=== PATIENT | male | born 1990 | race Caucasian/White ===

== ENCOUNTER → 2016-07-25 | Outpatient (REF) ==
[~2016-07-25] MED LIST: CLARITIN 1010 MG/TAB PO; CLARITIN-D 10 M1 T24 PO; CRUTCHES MC; MOTRIN 800800 MG/TAB PO; NO HOME MEDICATIONS; NORCO 325 MG-51 TAB PO; ZITHROMAX 250M250 MG PO; ZOFRAN 4MG T4 MG/TAB PO
== END ==
LOC: WSOH 14:08
DX: Z02.1 Encounter for pre-employment examination (principal)

== ENCOUNTER → 2016-07-26 | Outpatient (REF) | LOC: WSOH 13:54 | DX: Z02.1 Encounter for pre-employment examination (principal) ==

== ENCOUNTER → 2016-07-29 | Outpatient (REF) | LOC: WSOH 12:59 | DX: Z23 Encounter for immunization (principal) ==

== ENCOUNTER → 2016-08-28 | Outpatient (REF) | LOC: WSOH 15:36 | DX: Z23 Encounter for immunization (principal) ==

== ENCOUNTER 2016-09-06 11:16 | Outpatient (RCR) | payer OTHER ==
[~2016-09-06] VITALS: Ht 177.8 cm; Wt 53.0 kg
[~2016-09-06 11:16] MED LIST changes: -CLARITIN 1010 MG/TAB PO; -CLARITIN-D 10 M1 T24 PO; -CRUTCHES MC; -MOTRIN 800800 MG/TAB PO; -NORCO 325 MG-51 TAB PO; -ZITHROMAX 250M250 MG PO; -ZOFRAN 4MG T4 MG/TAB PO
[2016-09-06 12:45] VITALS: BP 101/58; PULSE 89; TEMP 99.7
[2016-09-06] MEDS ORDERED: ZOFRAN 4MG T4 MG/TAB PO (19:05)
[2016-09-06] MEDS ORDERED: ZITHROMAX 250M250 MG PO (19:05)
== END 2016-09-06 17:01 | disposition home or self-care (01) ==
LOC: EUO 11:16
DX: E86.0 Dehydration (principal); R11.2 Nausea with vomiting, unspecified; R50.9 Fever, unspecified; R42 Dizziness and giddiness

== ENCOUNTER 2016-09-06 16:54 | Emergency (ER) | payer OTHER ==
[~2016-09-06] VITALS: Ht 175.3 cm; Wt 53.2 kg
[2016-09-06 16:56] VITALS: TEMP 99.4
[2016-09-06 17:40] LABS: BASO # 0.1 (0.0-0.2); BASO % 0.6 % (0.0-2.0); EOS # 0.2 (0.0-0.7); EOS % 2.2 % (0-4.0); GRAN # 5.7 (1.4-6.5); GRAN % 63.1 % (42.2-75.2); HEMATOCRIT 43.9 % (42.0-52.0); HEMOGLOBIN 14.7 g/dl (13.5-18.0); LYMPH # 1.9 (1.2-3.4); LYMPH % 20.4 % (20.0-51.0); MEAN CELL VOLUME 91 fl (80.0-100.0); MEAN CORPUSCULAR HEMOGLOBIN 30 pg (27.0-31.0); MEAN CORPUSCULAR HGB CONC 34 g/dl (33.0-37.0); MEAN PLATELET VOLUME 9.9 fl (7.4-10.4); MONO # 1.2 (0.1-0.6); MONO % 13.5 % (1.7-9.3); PLATELET COUNT 206 K/mm3 (130-400); RED BLOOD COUNT 4.85 M/mm3 (4.20-5.60); REDCELL DISTRIBUTION WIDTH-CV 12.8 % (11.5-14.5); WHITE BLOOD COUNT 9.1 K/mm3 (4.8-10.8)
[2016-09-06 17:50] LABS: ADJUSTED CALCIUM 8.9 mg/dL (8.4-10.2); ALBUMIN 4.3 gm/dL (3.5-5.0); BILIRUBIN,TOTAL 1.1 mg/dL (0.0-1.0); CALCIUM 9.1 mg/dL (8.4-10.2); CREATININE, serum 1.01 mg/dL (0.66-1.25); POTASSIUM 4.3 mmol/L (3.4-5.0); TOTAL PROTEIN 7.9 gm/dL (6.4-8.2)
[2016-09-06 18:02] LABS: INFLUENZA B NEGATIVE
[2016-09-06] MEDS ORDERED: ZOFRAN 4MG T4 MG/TAB PO (19:05)
[2016-09-06] MEDS ORDERED: ZITHROMAX 250M250 MG PO (19:05)
[2016-09-06 19:25] VITALS: BP 111/62; PULSE 74
== END 2016-09-06 19:24 | disposition home or self-care (01) ==
LOC: COL.ER 16:54
PROVIDERS: Emergency Medicine
DX: J18.9 Pneumonia, unspecified organism (principal)
CPT/HCPCS: J1885; J2405; J7030

== ENCOUNTER 2016-10-12 15:49 | Emergency (ER) | payer OTHER ==
[~2016-10-12] VITALS: Ht 175.3 cm; Wt 54.1 kg
[~2016-10-12 15:49] MED LIST changes: +ZITHROMAX 250M250 MG PO; +ZOFRAN 4MG T4 MG/TAB PO
[2016-10-12 15:50] VITALS: BP 114/47; TEMP 98.6
[2016-10-12] MEDS ORDERED: CLARITIN 1010 MG/TAB PO (15:56)
[2016-10-12 17:02] VITALS: PULSE 89
== END 2016-10-12 17:10 | disposition home or self-care (01) ==
LOC: COL.ER 15:49
DX: S63.8X2A Sprain of other part of left wrist and hand, initial encounter (principal); W22.8XXA Striking against or struck by other objects, initial encounter; Y92.89 Other specified places as the place of occurrence of the external cause

== ENCOUNTER 2017-01-20 15:18 | Emergency (ER) | payer OTHER ==
[~2017-01-20] VITALS: Ht 175.3 cm; Wt 51.8 kg
[2017-01-20 15:18] VITALS: TEMP 99.3
[~2017-01-20 15:18] MED LIST changes: +CLARITIN 1010 MG/TAB PO
[2017-01-20] MEDS ORDERED: CLARITIN-D 10 M1 T24 PO (15:24)
[2017-01-20] MEDS ORDERED: NORCO 325 MG-51 TAB PO (16:36)
[2017-01-20] MEDS ORDERED: MOTRIN 800800 MG/TAB PO (16:36)
[2017-01-20] MEDS ORDERED: CRUTCHES MC (17:12)
[2017-01-20 17:23] VITALS: BP 102/72; PULSE 73
== END 2017-01-20 17:08 | disposition home or self-care (01) ==
LOC: COL.ER 15:18
DX: S80.12XA Contusion of left lower leg, initial encounter (principal); V13.4XXA Pedal cycle driver injured in collision with car, pick-up truck or van in traffic accident, initial encounter; Y92.414 Local residential or business street as the place of occurrence of the external cause
CPT/HCPCS: J2270; J2405

== ENCOUNTER → 2017-01-27 | Outpatient (REF) ==
[~2017-01-27] MED LIST changes: +CLARITIN-D 10 M1 T24 PO; +CRUTCHES MC; +MOTRIN 800800 MG/TAB PO; +NORCO 325 MG-51 TAB PO
== END ==
LOC: WSOH 14:06
DX: Z23 Encounter for immunization (principal)

== ENCOUNTER 2021-03-01 08:48 | Emergency (ER) | payer SELFPAY ==
[~2021-03-01] VITALS: Ht 175.3 cm; Wt 53.2 kg
[2021-03-01 09:04] VITALS: TEMP 98.6
[2021-03-01 09:30] LABS: BASO % 0.8 % (0.0-2.0); EOS # 0.1 (0.0-0.7); GRAN # 2.7 (1.4-6.5); GRAN % 66.7 % (42.2-75.2); HEMATOCRIT 42.9 % (42.0-52.0); HEMOGLOBIN 14.9 g/dl (13.5-18.0); LYMPH # 0.4 (1.2-3.4); LYMPH % 11.1 % (20.0-51.0); MEAN CELL VOLUME 87 fl (80.0-100.0); MEAN CORPUSCULAR HEMOGLOBIN 30 pg (27.0-31.0); MEAN CORPUSCULAR HGB CONC 35 g/dl (33.0-37.0); MEAN PLATELET VOLUME 9.5 fl (7.4-10.4); MONO # 0.8 (0.1-0.6); MONO % 19.1 % (1.7-9.3); PLATELET COUNT 206 K/mm3 (130-400); RED BLOOD COUNT 4.94 M/mm3 (4.20-5.60); REDCELL DISTRIBUTION WIDTH-CV 12.9 % (11.5-14.5)
[2021-03-01 09:43] LABS: ALBUMIN 4.3 gm/dL (3.5-5.0); BILIRUBIN,TOTAL 0.8 mg/dL (0.0-1.0); CALCIUM 8.9 mg/dL (8.4-10.2); CREATININE, serum 1.05 (0.66-1.25); POTASSIUM 3.4 mmol/L (3.4-5.0); TOTAL PROTEIN 7.2 gm/dL (6.4-8.2)
[2021-03-01 10:51] VITALS: BP 100/65; PULSE 94
== END 2021-03-01 10:59 | disposition home or self-care (01) ==
LOC: COL.ER 08:48
PROVIDERS: Physician Assistant
DX: U07.1 COVID-19 (principal)
CPT/HCPCS: J1885; J7030

== ENCOUNTER 2021-09-13 14:24 | Emergency (ER) | payer SELFPAY ==
[~2021-09-13] VITALS: Ht 175.3 cm; Wt 52.3 kg
[2021-09-13 14:30] VITALS: BP 111/69; TEMP 97.8
[2021-09-13 15:43] VITALS: PULSE 81
== END 2021-09-13 15:43 | disposition home or self-care (01) ==
LOC: COL.ER 14:24
DX: M79.642 Pain in left hand (principal); Z88.6 Allergy status to analgesic agent

== ENCOUNTER 2021-12-13 23:00 | Emergency (ER) | payer SELFPAY ==
[~2021-12-13] VITALS: Ht 175.3 cm; Wt 52.7 kg
[2021-12-13 23:11] VITALS: TEMP 98.8
[2021-12-13] MEDS ORDERED: NORCO 325 MG-51 TAB PO (23:53)
[2021-12-14 00:21] VITALS: BP 105/73; PULSE 74
== END 2021-12-14 00:21 | disposition home or self-care (01) ==
LOC: COL.ER 23:00
DX: T23.232A Burn of second degree of multiple left fingers (nail), not including thumb, initial encounter (principal); Z87.891 Personal history of nicotine dependence; Z28.310 Unvaccinated for COVID-19; X19.XXXA Contact with other heat and hot substances, initial encounter; Y92.59 Other trade areas as the place of occurrence of the external cause; Y99.0 Civilian activity done for income or pay

== ENCOUNTER 2021-12-25 09:13 | Inpatient (IN) | payer SELFPAY ==
[~2021-12-25] VITALS: Ht 177.8 cm; Wt 51.8 kg
[2021-12-25 09:56] LABS: BASO % 0.8 % (0.0-2.0); EOS % 0.5 % (0.0-4.0); GRAN # 2.7 K/mm3 (1.4-6.5); GRAN % 69.5 % (42.2-75.2); LYMPH # 0.4 K/mm3 (1.2-3.4); MEAN CELL VOLUME 88 fl (80.0-100.0); MEAN CORPUSCULAR HEMOGLOBIN 31 pg (27-31); MEAN CORPUSCULAR HGB CONC 35 g/dl (33.0-37.0); MONO # 0.7 K/mm3 (0.1-0.6); MONO % 18.9 % (1.7-9.3); PLATELET COUNT 201 K/mm3 (130-400); RED BLOOD COUNT 4.56 M/mm3 (4.20-5.60); REDCELL DISTRIBUTION WIDTH-CV 12.3 % (11.5-14.5)
[2021-12-25 10:14] LABS: ALBUMIN 4.5 gm/dL (3.5-5.0); BILIRUBIN,TOTAL 1.2 mg/dL (0.2-1.2); CALCIUM 9.3 mg/dL (8.4-10.2); CREATININE, serum 1.25 mg/dL (0.72-1.25); POTASSIUM 3.4 mmol/L (3.5-4.5); TOTAL PROTEIN 7.4 gm/dL (6.2-8.1)
[2021-12-25 11:41] LABS: COLLECTION METHOD CLEAN CATCH
[2021-12-25 11:47] LABS: MUCOUS Present (NOT PRESENT); PH 6 (5-8); SQUAMOUS EPITHELIAL 0-2 /hpf (0-10); URINE APPEARANCE Hazy (CLEAR/HAZY); URINE BACTERIA Rare /hpf (NONE SEEN); URINE BLOOD Negative (NEGATIVE); URINE COLOR Amber (YELLOW); URINE GLUCOSE Negative (NEGATIVE); URINE KETONE 1+ (NEGATIVE); URINE NITRATE Negative (NEGATIVE); URINE PROTEIN(semi-quant) 1+ (NEGATIVE); URINE RBC 0-2 /hpf (0-2)
[2021-12-25 11:58] LABS: TRICYCLIC ANTIDEPRESS URINE NEGATIVE
[2021-12-25 15:21] VITALS: BP 10/53; PULSE 76; TEMP 98.4
--- NOTE | 2021-12-25 17:30 | NUR ---
CRITICAL D.DIMER CALLED TO DR. ROBLES. RESULT OF 406.00
--- NOTE | 2021-12-25 19:56 | NUR ---
PATIENT ADMITTED FROM ER. ORIENTED TO ROOM, POLICIES. VERY FRAIL, C/O PAIN AND MALIASE. FAILED IV START, 2X ON LEFT ARM. PATIENT UNABLE TO TOLERATE. PATIENT REFUSE TO ALLOW STICKS ON R ARM DUE TO "UNCONTROLLED PANIC ATTACKS" NO SIGNIFICANT EVENTS. PATIENT ON FALL RISKS, ALARM ON, BEDSIDE REPORT GIVEN, NO CONCERNS AT THIS TIME.
[2021-12-25 20:24] VITALS: BP 115/65; PULSE 87; TEMP 98.5
[2021-12-26 00:15] VITALS: BP 116/61; PULSE 82; TEMP 98.2
--- NOTE | 2021-12-26 01:45 | NUR ---
Pt alert and oriented. Slight pale appearance. Pt cooperative, but often appears anxious when awake. Does not tolerate pain well. Pt ambulates weakly, hunching over when OOB. Attempted to begin running the 6 prescribed bags of IV potassium and the pt was unable to tolerate for more than 1 minute into the administration. Attempted to slow the rate, but the pt continued to yell in pain. Notified the provider and the IV potassium was stopped. PO potassium was ordered and administered to the pt per orders. Pt was up to void and had 1 BM. GI panel was collected and sent to the lab per orders. IV antibx and IV magenesium administered per orders. Pt was oriented to room and educated to not get OOB without assistance. Pt has gotten OOB x2 without calling for assistance. Re-educated pt each time. Fall precautions in place and bed alarm remains on. Pt tolerating clear liquid diet. Pt reported some nausea earlier this evening. Prn zofran was administered with some relief. Pt has not had any vomiting yet this shift. Pt does have a productive cough with thick wood sputum. VS stable. Afebrile. On 2L NC. Pt stated to me that we are unable to utilize the right arm for lab draws or IV sites because it causes "panic attacks". I've placed a right arm extremity restriction sign on the door and a arm restirction band on the pt's right arm. No significant skin issues noted. The pt is missing various teeth in his mouth. Pt does not report any questions at this time, will continue to monitor.
[2021-12-26 04:35] VITALS: BP 106/64; PULSE 61; TEMP 98.9
--- NOTE | 2021-12-26 04:40 | NUR ---
Pt had inquired to see if we could advance his diet because his stomach was "hurting from not eating real food". States he was having n/v at home, but denies n/v at this time. Pt denies abdominal pain. Pt tolerating clear liquid diet. Had 1 episode of diarrhea tonight that was sent off for a GI panel and was negative. I notified the provider who gave a verbal phone order readback to place a general diet. Will place order per provider. Will continue to monitor.
--- NOTE | 2021-12-26 05:59 | NUR ---
No adverse events overnight. Pt alert and oriented. No vomiting overnight. Pt denies nausea at this time. Pt requested to have his diet advanced. VS stable. Afebrile. On 2L NC. 1 episode of diarrhea overnight. Pt tolerating PO. IV antibx administered per orders. Adeuqte urine output overnight. Pt does not report any questions at this time, will continue to monitor.
[2021-12-26 07:19] LABS: HEMATOCRIT 41.4 % (42.0-52.0); HEMOGLOBIN 14.3 g/dl (13.5-18.0); MEAN CELL VOLUME 89 fl (80.0-100.0); MEAN CORPUSCULAR HEMOGLOBIN 31 pg (27-31); MEAN CORPUSCULAR HGB CONC 35 g/dl (33.0-37.0); PLATELET COUNT 223 K/mm3 (130-400); RED BLOOD COUNT 4.65 M/mm3 (4.20-5.60); REDCELL DISTRIBUTION WIDTH-CV 12.4 % (11.5-14.5)
[2021-12-26 07:26] LABS: ALBUMIN 4.1 gm/dL (3.5-5.0); BILIRUBIN,TOTAL 0.9 mg/dL (0.2-1.2); CALCIUM 9.2 mg/dL (8.4-10.2); CREATININE, serum 0.92 mg/dL (0.72-1.25); MAGNESIUM 2.2 mg/dL (1.6-2.6); POTASSIUM 4.2 mmol/L (3.5-4.5); TOTAL PROTEIN 7.2 gm/dL (6.2-8.1)
[2021-12-26 08:40] VITALS: BP 98/55; PULSE 56; TEMP 98.2
[2021-12-26 11:41] VITALS: BP 98/65; PULSE 61; TEMP 97.6
--- NOTE | 2021-12-26 15:02 | NUR ---
PATIENT ALERT AND ORIENTED X3. VSS. PATIENT HERE FOR NAUSEA/VOMITING/SHORTNESS OF BREATH. PATIENT DENIES ANY PAIN. ASSESSMENT PERFORMED. AM MEDS ADMINISTERED. IV TO LEFT FOREARM FLUSHES WELL. PATIENT ON 2L O2 PER NC. CALL LIGHT WITHIN REACH. BED ALARM ON.
--- NOTE | 2021-12-26 15:20 | NUR ---
[facility] contacted patient by phone to discuss discharge planning as he is in isolation for covid. Patient lives in [place] and reports that he was seeing Dr. Leela Whalen for primary care, however he thinks he is seeing a new provider in their office, but cannot remember the name. Patient obtains medications from [facility] and advised he does not have insurance at this time. Patient states he works at [employer] but cannot get insurance through them until he has been there for three months. Patient does not use any DME and is independent with [employer]. Patient is not and reports his next of kin would be his father, Joce. Patient plans to return home at time of discharge. Discharge Plan: Home
[2021-12-26 15:30] VITALS: BP 100/57; PULSE 55; TEMP 97.9
[2021-12-26 20:48] VITALS: BP 99/55; PULSE 53; TEMP 98.1
[2021-12-27 00:58] VITALS: BP 103/60; PULSE 65; TEMP 97.9
[2021-12-27 05:02] VITALS: BP 109/55; PULSE 67; TEMP 98.3
--- NOTE | 2021-12-27 06:31 | NUR ---
pt on RA, VSS, up ad padmini in room. no N/V/D
[2021-12-27 08:00] VITALS: BP 112/62; PULSE 65; TEMP 98.2
[2021-12-27 09:32] LABS: BASO % 0.2 % (0.0-2.0); GRAN # 2.7 K/mm3 (1.4-6.5); GRAN % 53.7 % (42.2-75.2); HEMATOCRIT 42.2 % (42.0-52.0); HEMOGLOBIN 14.3 g/dl (13.5-18.0); LYMPH # 1.5 K/mm3 (1.2-3.4); LYMPH % 29.3 % (20.0-51.0); MEAN CELL VOLUME 90 fl (80.0-100.0); MEAN CORPUSCULAR HEMOGLOBIN 31 pg (27-31); MEAN CORPUSCULAR HGB CONC 34 g/dl (33.0-37.0); MEAN PLATELET VOLUME 10.7 fl (7.4-10.4); MONO # 0.8 K/mm3 (0.1-0.6); MONO % 16.6 % (1.7-9.3); PLATELET COUNT 223 K/mm3 (130-400); RED BLOOD COUNT 4.67 M/mm3 (4.20-5.60); REDCELL DISTRIBUTION WIDTH-CV 12.6 % (11.5-14.5)
[2021-12-27] MEDS ORDERED: TESSALON PERLE200 MG PO (09:49)
[2021-12-27] MEDS ORDERED: DECADRON6 MG PO (09:50)
[2021-12-27] MEDS ORDERED: MUCINEX DM 30 M1 TE1 PO (09:50)
[2021-12-27 10:01] LABS: ALBUMIN 3.8 gm/dL (3.5-5.0); BILIRUBIN,TOTAL 0.5 mg/dL (0.2-1.2); CALCIUM 8.8 mg/dL (8.4-10.2); CREATININE, serum 0.84 mg/dL (0.72-1.25); MAGNESIUM 2.2 mg/dL (1.6-2.6); POTASSIUM 3.9 mmol/L (3.5-4.5); TOTAL PROTEIN 6.9 gm/dL (6.2-8.1)
== END 2021-12-27 11:00 | disposition home or self-care (01) | DRG 177 ==
LOC: COL.ER 09:13 → MEDICAL 13:56
PROVIDERS: Personal Emergency Response Attendant; ADMIT Family Medicine
PROC: XW033E5 Introduction of Remdesivir Anti-infective into Peripheral Vein, Percutaneous Approach, New Technology Group 5 (ICD-10-PCS; principal; 2021-12-25)
DX: U07.1 COVID-19 (principal); J12.82 Pneumonia due to coronavirus disease 2019; J96.01 Acute respiratory failure with hypoxia; E87.6 Hypokalemia; R19.7 Diarrhea, unspecified; Z28.310 Unvaccinated for COVID-19; Z88.5 Allergy status to narcotic agent; Z91.048 Other nonmedicinal substance allergy status; Z87.891 Personal history of nicotine dependence
CPT/HCPCS: 99223-AI; 99233-AI; 99239; G0378; J0248; J0456; J0696; J1100; J1650; J2405; J3475; J3480; J7030; J7050; Q9967

== ENCOUNTER 2022-01-07 13:33 | Emergency (ER) | payer SELFPAY ==
[~2022-01-07] VITALS: Ht 175.3 cm; Wt 52.3 kg
[2022-01-07 14:00] VITALS: TEMP 98.1
[2022-01-07 14:35] LABS: BASO % 0.9 % (0.0-2.0); EOS # 0.1 K/mm3 (0.0-0.7); GRAN # 2.3 K/mm3 (1.4-6.5); GRAN % 51.5 % (42.2-75.2); HEMATOCRIT 40.7 % (42.0-52.0); HEMOGLOBIN 13.7 g/dl (13.5-18.0); LYMPH # 1.4 K/mm3 (1.2-3.4); LYMPH % 32.1 % (20.0-51.0); MEAN CELL VOLUME 90 fl (80.0-100.0); MEAN CORPUSCULAR HEMOGLOBIN 30 pg (27-31); MEAN CORPUSCULAR HGB CONC 34 g/dl (33.0-37.0); MEAN PLATELET VOLUME 9.7 fl (7.4-10.4); MONO # 0.6 K/mm3 (0.1-0.6); MONO % 13.3 % (1.7-9.3); PLATELET COUNT 306 K/mm3 (130-400); RED BLOOD COUNT 4.53 M/mm3 (4.20-5.60); REDCELL DISTRIBUTION WIDTH-CV 12.3 % (11.5-14.5)
[2022-01-07 14:44] LABS: INR 1.2 (0.8-3.0); PARTIAL THROMBOPLASTIN TIME 31.8 SECONDS (26.0-37.0); PROTHROMBIN TIME 14.3 SECONDS (9.7-12.8)
[2022-01-07 14:56] LABS: ALANINE AMINOTRANSFERASE 19 U/L (0-55); ALBUMIN 4.2 gm/dL (3.5-5.0); ALKALINE PHOSPHATASE 42 U/L (40-150); ANION GAP 11 mmol/L (7-16); AST,SGOT 17 U/L (5-34); BILIRUBIN,TOTAL 0.9 mg/dL (0.2-1.2); BLOOD UREA NITROGEN 11 mg/dL (9-21); CALCIUM 9.7 mg/dL (8.4-10.2); CARBON DIOXIDE 23 mmol/L (22-29); CHLORIDE 107 mmol/L (98-107); CREATININE, serum 0.98 mg/dL (0.72-1.25); GLUCOSE 90 mg/dL (70-99); POTASSIUM 3.5 mmol/L (3.5-4.5); SODIUM 141 mmol/L (136-145); TOTAL PROTEIN 7.3 gm/dL (6.2-8.1)
[2022-01-07 15:03] LABS: TROPONIN-I < 0.010 ng/mL (0.00-0.033)
[2022-01-07 15:32] VITALS: BP 112/79; PULSE 58
== END 2022-01-07 15:33 | disposition home or self-care (01) ==
LOC: COL.ER 13:33
PROVIDERS: Emergency Medicine
DX: R07.89 Other chest pain (principal); R79.1 Abnormal coagulation profile; Z86.16 Personal history of COVID-19; Z28.310 Unvaccinated for COVID-19
CPT/HCPCS: Q9967

== ENCOUNTER → 2022-01-07 | Outpatient (CLI) | payer SELFPAY ==
[~2022-01-07] MED LIST changes: +DECADRON6 MG PO; +MUCINEX DM 30 M1 TE1 PO; +TESSALON PERLE200 MG PO
== END ==
LOC: ZCOL.LAB 11:09
DX: U07.1 COVID-19 (principal)